=== PATIENT | female | born 2005 | race Caucasian/White ===

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

== ENCOUNTER → 2024-01-28 | Outpatient (CLI) | payer OTHER | LOC: LAB 13:52 → LAB SHORT 13:52 | DX: N89.8 Other specified noninflammatory disorders of vagina (principal) | CPT/HCPCS: 87070; 87205 ==